=== PATIENT | male | born 1940 | race Caucasian/White ===

== ENCOUNTER 2021-03-29 12:13 | Inpatient (IN) | payer MEDICARE ==
[2021-03-29] MEDS ORDERED: HEPARIN SODIUM 1,000 UN/ML (10ML VL) IV PRN (15:42)
[2021-03-29 16:26] LABS: Glucose,Whole Blood 105 mg/dL (75-99)
[2021-03-29] MEDS: HEPARIN SOD,PORK IN 0.45% NACL 25,000 UNIT in 0.45% NACL 1 250ML.BAG IV SCH (16:55)
[2021-03-29] MEDS: SODIUM CHLORIDE 0.9% 1,000 ML IV SCH (16:56)
[2021-03-29 18:01] LABS: Basophils % (A) 1 %; Eosinophils # (A) 0.1 k/uL (0-0.7); Eosinophils % (A) 2 %; HGB 12.2 gm/dL (13.0-17.5); Lymphocytes % (A) 23 %; MCH 31.2 pg (25.0-35.0); MCHC 33.9 g/dL (31.0-37.0); MCV 91.8 fL (80.0-100.0); Mean Platelet Volume 9.2; Monocytes # (A) 0.4 k/uL (0-1.0); Monocytes % (A) 8 %; Neutrophils # (A) 2.8 k/uL (1.3-7.7); Neutrophils % (A) 64 %; Platelet Count 200 k/uL (150-450); RBC 3.91 m/uL (4.30-5.90); RDW 15.3 % (11.5-15.5); WBC 4.4 k/uL (3.8-10.6)
[2021-03-29 18:20] LABS: Partial Thromboplastin Time 27.4 sec (22.0-30.0); Prothrombin Time 10.7 sec (9.0-12.0)
[2021-03-29] MEDS: TAMSULOSIN 0.4 MG CAP.ER.24H PO SCH (18:29)
--- NOTE | 2021-03-29 18:48 | P.GSCN ---
History of Present Illness Consult date: 03/29/21 Reason for Consult: Coronary artery disease, aortic stenosis Requesting physician: Christopher Weiner History of present illness: This is an 80-year-old gentleman who follows on an outpatient basis with Dr. Toure for primary care. He has a previous medical history of coronary artery disease status post previous PCI, hypertension, hyperlipidemia, right internal carotid stenosis status post right CEA in 2014, insulin-dependent diabetes, hypothyroid, prostate cancer in 2017 status post radiation therapy, Covid pneu monia in May 2020, multiple orthopedic surgeries, previous tobacco dependence, and family history of premature coronary artery disease with father diagnosed less than 55 years old. The patient began experiencing chest pain with shortness of breath on Friday, he continued to get worse over the next few days and he had associated nausea and vomiting. He presented to [facility] for evaluation and treatment. Troponins were mildly elevated and he was ruled in for non-STEMI. He had heart catheterization this morning at [facility] demonstrating normal left ventricular function and aortic valve area 0.9 cm indicating severe aortic stenosis. He also had left heart c atheterization today demonstrating triple-vessel coronary artery disease. Due to these findings the patient was transferred to [facility] by Dr. Weiner with consultation placed to Dr. Navarro for surgical recommendations. Review of Systems Review of systems was completed and was negative except as noted - Cardiovascular Reports as per HPI, Reports chest pain, Reports leg edema, Reports shortness of breath Past Medical History Past Medical History: Atrial Fibrillation, Coronary Artery Disease (CAD), Cancer, Chest Pain / Angina, Diabetes Mellitus, Eye Disorder, Hyperlipidemia, Hypertension, Osteoarthritis (OA), Pneumonia, Prostate Disorder, Thyroid Disorder Additional Past Medical History / Comment(s): Covid pneumonia in May 2020. Patient has received Moderna vaccine in September 2020 History of Any Multi-Drug Resistant Organisms: None Reported Past Surgical History: Heart Catheterization, Heart Catheterization With Stent, Prostate Surgery, Tonsillectomy Additional Past Surgical History / Comment(s): bilateral shoulder, TKA, "carotid artery surgery with shunt" , implant in right ear Past Anesthesia/Blood Transfusion Reactions: No Reported Reaction Date of Last Stent Placement:: 2003 Past Psychological History: No Psychological Hx Reported Smoking Status: Former smoker Past Alcohol Use History: None Reported Past Drug Use History: None Reported - Past Family History Father Family Medical History: Coronary Artery Disease (CAD) Mother Family Medical History: Diabetes Mellitus Medications and Allergies Home Medications Medication Instructions Recorded Confirmed Type Dulaglutide [Trulicity] 3 mg SQ MO 03/29/21 03/29/21 History Insulin Glargine,Hum.rec.anlog 30 unit SQ HS 03/29/21 03/29/21 History [Lantus Solostar Pen] Levothyroxine Sodium [Synthroid] 150 mcg PO DAILY 03/29/21 03/29/21 History Metoprolol Succinate [Toprol XL] 25 mg PO DAILY 03/29/21 03/29/21 History Pioglitazone [Actos] 30 mg PO DAILY 03/29/21 03/29/21 History Simvastatin [Zocor] 40 mg PO HS 03/29/21 03/29/21 History Tamsulosin HCl [Flomax] 0.4 mg PO HS 03/29/21 03/29/21 History hydroCHLOROthiazide 25 mg PO DAILY 03/29/21 03/29/21 History metFORMIN HCL [Glucophage] 1,000 mg PO BID 03/29/21 03/29/21 History Allergies Allergy/AdvReac Type Severity Reaction Status Date / Time No Known Allergies Allergy Verified 03/29/21 17:49 Surgical - Exam Vital Signs Temp Pulse Resp BP Pulse Ox 98 F 65 16 140/71 98 03/29/21 15:24 03/29/21 15:24 03/29/21 15:24 03/29/21 15:24 03/29/21 15:24 CONSTITUTIONAL: Awake and alert, appears comfortable, cooperative, well- developed, well-nourished, no pain, no acute distress EYES: Pupils equal, round, reactive to light, normal ocular movement ENT: Moist mucous membranes without oral lesions present, cochlear implant present, patient has full dentures NECK: No masses, no bruits, trachea midline RESPIRATORY: Lungs sounds clear to auscultation bilaterally. Respirations even, nonlabored. Currently on room air with oxygen saturation 98%. Strong cough. No chest wall deformities. No clubbing or cyanosis present CARDIOVASCULAR: S1, soft S2 present, loud systolic murmur present. Regular rate and rhythm, sinus rhythm on telemetry. Palpable peripheral pulses bilaterally. Bilateral lower extremity edema present, right greater than left. No calf pain or tenderness noted. GASTROINTESTINAL: Abdomen soft, nontender, nondistended without masses or organomegaly noted. There is no rebound or guarding present. Active bowel sounds present 4 quadrants. GENITOURINARY: Deferred INTEGUMENTARY: Skin is warm and dry. T band in place to right radial heart catheterization site NEUROLOGIC: Cranial nerves II through XII intact, normal coordination, no obvious motor or sensory deficits, speech is normal MUSKULOSKELETAL: Able to move all extremities, strength equal bilaterally, normal posture PSYCHIATRIC: Alert and oriented to person place and time, appropriate affect, intact judgment and insight Results - Labs 03/29/21 17:44 Abnormal Lab Results - Last 24 Hours (Table) 03/29/21 03/29/21 Range/Units 16:24 17:44 RBC 3.91 L (4.30-5.90) m/uL Hgb 12.2 L (13.0-17.5) gm/dL Hct 36.0 L (39.0-53.0) % POC Glucose (mg/dL) 105 H (75-99) mg/dL - Imaging Additional studies: Heart catheterization and echocardiogram films reviewed with Dr. Navarro Assessment and Plan Assessment: 1. Coronary artery disease status post previous PCI, non-STEMI this admission 2. Severe aortic stenosis with aortic valve area 0.9 cm 3. Hypertension 4. Hyperlipidemia 5. Right internal carotid stenosis status post right CEA in 2014 6. Insulin-dependent diabetes 7. Hypothyroid 8. Prostate cancer in 2016 status post radiation therapy 9. Covid pneumonia in May 2020, status post Materna vaccine earlier this year 10. Previous tobacco dependence 11. Family history of premature coronary artery disease Plan: The patient was seen and examined at the bedside on the cardiac stepdown unit with Dr. Navarro. Chart/diagnostics from the [facility] were reviewed. The patient is currently in no distress, denies any pain or shortness of breath. The patient does need intervention on his coronary arteries, however due to the extensive nature of severe calcification of the aortic valve extend ing into the aorta the patient is very high risk for open heart surgery. Our recommendations are for PCI to the intermediate artery followed by LAD intervention. Once patient has recovered he may be worked up for TAVR. This was discussed in detail by Dr. Navarro with Dr. Weiner and he is in agreement. This was also discussed in detail with the patient and his and they verbalized understanding. Continue to maximize medical therapy with aspirin, statin, beta brandi. Patient states he had a recent carotid Doppler at Dr. Payne's office, we will attempt to obtain results. Patient has full dentures, he will not need dental clearance. Medical management of other comorbidities per primary care service, cardiology. Thank you Dr. Weiner for this consult. We look forward to working with you in the care of your patient Time with Patient: Greater than 30
[2021-03-29 18:58] LABS: ALT 14 U/L (4-49); AST 38 U/L (17-59); African American GFR (CKD) 76 (>60 ml/min/1.73 sqM); Alkaline Phosphatase 56 U/L (38-126); Anion Gap 9 mmol/L; Blood Urea Nitrogen 21 mg/dL (9-20); Calcium 10.4 mg/dL (8.4-10.2); Carbon Dioxide 25 mmol/L (22-30); Chloride 104 mmol/L (98-107); Glucose 119 mg/dL (74-99); Non-African American GFR(CKD) 66 (>60 ml/min/1.73 sqM); Potassium 4.2 mmol/L (3.5-5.1); Sodium 138 mmol/L (137-145); Total Bilirubin 0.3 mg/dL (0.2-1.3); Total Protein 6.3 g/dL (6.3-8.2)
[2021-03-29 19:46] LABS: Glucose,Whole Blood 120 mg/dL (75-99)
[2021-03-29 20:09] LABS: T4, Free (Free Thyroxine) 1.61 ng/dL (0.78-2.19)
[2021-03-29] MEDS: INSULIN DETEMIR (LEVEMIR) 100 UNIT/ML SYR SQ SCH (20:49)
[2021-03-29] MEDS: INSULIN ASPART (NovoLOG) 100 UNIT/ML VIAL SQ SCH (20:50)
[2021-03-29] MEDS ORDERED: METOPROLOL TARTRATE 12.5 MG TAB PO SCH (21:00)
[2021-03-30 05:42] LABS: Glucose,Whole Blood 97 mg/dL (75-99)
[2021-03-30] MEDS: LEVOTHYROXINE 125 MCG TAB PO SCH (06:07)
[2021-03-30 06:33] LABS: Basophils % (A) 0 %; Eosinophils # (A) 0.2 k/uL (0-0.7); Eosinophils % (A) 3 %; HCT 36.2 % (39.0-53.0); HGB 12.1 gm/dL (13.0-17.5); Lymphocytes # (A) 1.1 k/uL (1.0-4.8); Lymphocytes % (A) 20 %; MCH 30.7 pg (25.0-35.0); MCHC 33.6 g/dL (31.0-37.0); MCV 91.4 fL (80.0-100.0); Mean Platelet Volume 8.7; Monocytes # (A) 0.4 k/uL (0-1.0); Monocytes % (A) 7 %; Neutrophils # (A) 3.7 k/uL (1.3-7.7); Neutrophils % (A) 68 %; Platelet Count 222 k/uL (150-450); RBC 3.96 m/uL (4.30-5.90); RDW 15.2 % (11.5-15.5); WBC 5.4 k/uL (3.8-10.6)
[2021-03-30 06:38] LABS: INR 1.1 (<1.2); Prothrombin Time 11.2 sec (9.0-12.0)
[2021-03-30] MEDS: INSULIN ASPART (NovoLOG) 100 UNIT/ML VIAL SQ SCH ×4 (06:42→21:20)
[2021-03-30 06:54] LABS: Calcium 10.5 mg/dL (8.4-10.2); Potassium 3.6 mmol/L (3.5-5.1)
[2021-03-30] MEDS ORDERED: ATORVASTATIN 40 MG TAB PO SCH (09:00)
--- NOTE | 2021-03-30 09:11 | HP ---
HISTORY AND PHYSICAL This 80-year-old white male was admitted to the hospital. He has had 5 previous stents. He had a heart catheterization at [facility] that showed severe aortic stenosis and triple-vessel coronary artery disease. The patient was sent over to the hospital here for stent placement versus CABG surgery. Discussed with Dr. Navarro, who wants to do a TAVR after he has heart stents placed tomorrow. So I am discussing this with the family and the patient. REVIEW OF SYSTEMS: Fourteen-point review of systems negative except for mentioned in HPI. PAST MEDICAL HISTORY: He has atrial fibrillation, coronary artery disease, angina, diabetes mellitus, dyslipidemia, hypertension, osteoarthritis, pneumonia, prostate disorder, hypothyroidism. He has had heart catheterization with stent, prostate surgery, tonsillectomy, bilateral shoulder, TKA, carotid surgery with stent implant in his right ear. SOCIAL HISTORY: Former smoker. FAMILY HISTORY: Father with coronary artery disease. Mother with diabetes mellitus. HOME MEDICATIONS: 1. Trulicity 3 mg subcutaneously weekly. 2. Lantus 30 units daily. 3. Synthroid 150 mcg daily. 4. Toprol-XL 25 daily. 5. Actos 30 daily. 6. Zocor 40 daily. 7. Flomax 0.4 mg daily. 8. Hydrochlorothiazide 25 mg daily. 9. Metformin 1000 b.i.d. ALLERGIES: NEGATIVE. PHYSICAL EXAMINATION: GENERAL APPEARANCE: He is sitting up, eating food. Temperature 98, respiratory rate 16 to 18, blood pressure 140/71, pulse ox 98. CARDIOVASCULAR: S1, S2. Lungs clear. GI soft. HEMATOLOGY: Negative Homans. PSYCH: Fair mood and affect. Alert and oriented x3. NEUROLOGIC: Cranial nerves are intact. ASSESSMENT: 1. Coronary artery disease, status post previous PCI, non-STEMI. 2. Severe aortic stenosis. 3. Hypertension. 4. Dyslipidemia. 5. Right internal carotid stenosis. 6. Insulin-dependent diabetes mellitus. 7. Hypothyroidism. 8. Prostate cancer. 9. COVID pneumonia in May 2020. 10.Previous nicotine addiction. PLAN: Heart catheterization tomorrow with some stent placement. Possibly TAVR after that versus doubt that they are going to do open heart surgery due to very high risk. Will follow with heart catheterization with stent placement tomorrow. MMODL / IJN: [id number] /
[2021-03-30] MEDS: METOPROLOL TARTRATE 25 MG TAB PO SCH ×2 (09:26→21:18)
[2021-03-30] MEDS: ATORVASTATIN 80 MG TAB PO SCH (09:26)
[2021-03-30] MEDS: PIOGLITAZONE 30 MG TAB PO SCH (09:26)
[2021-03-30] MEDS: LOSARTAN 25 MG TAB PO SCH (09:26)
[2021-03-30] MEDS: ASPIRIN 81 MG PO SCH (09:26)
--- NOTE | 2021-03-30 09:28 | P.PN ---
Subjective Progress Note Date: 03/30/21 Principal diagnosis: Coronary artery disease, non-STEMI this admission, severe aortic stenosis with aortic valve area 0.9 cm. Previous medical history of CAD with previous PCI, h ypertension, hyperlipidemia, right internal carotid stenosis status post right CEA in 2014, insulin-dependent diabetes, hypothyroid, prostate cancer in 2016 status post radiation therapy, covid pneumonia in May 2020, status post Moderna vaccine 09/2020, previous tobacco dependence, and family history of premature coronary artery disease The patient is currently sitting up in a recliner on the cardiac stepdown unit in no acute distress. He denies any chest pain or shortness of breath. Remains in sinus rhythm and hemodynamically stable. The patient was seen by Dr. Navarro last night with recommendations for stenting followed by TAVR workup. This was discussed in detail last night and again this morning with the patient and his , all questions answered. No new concerns. Objective - Vital Signs Vital signs: Vital Signs Temp 97.1 F L 03/30/21 08:00 Pulse 71 03/30/21 08:00 Resp 14 03/30/21 08:00 BP 105/55 03/30/21 08:00 Pulse Ox 99 03/30/21 08:00 Intake & Output 03/29/21 03/30/21 03/30/21 18:59 06:59 18:59 Intake Total 840 318 420 Balance 840 318 420 Weight 101.5 kg 100.7 kg Intake: Intake, IV Titration 78 Amount Heparin Sod,Pork in 0.45% 78 NaCl 25,000 unit In 0.45 % NaCl 1 250ml.bag @ 1, 000 UNIT/HR 10 mls/hr IV .Q24H [facility] Rx#:[id number] Oral 840 240 420 Other: Voiding Method Toilet # Voids 2 - Exam CONSTITUTIONAL: Awake and alert, appears comfortable, cooperative, no pain, no acute distress ENT: Cochlear implant present, patient has full dentures RESPIRATORY: Lungs sounds clear to auscultation bilaterally. Respirations even, nonlabored. Currently on room air with oxygen saturation 99%. CARDIOVASCULAR: S1, soft S2 present, systolic murmur present. Regular rate and rhythm, sinus rhythm on telemetry. Palpable peripheral pulses bilaterally. Bilateral lower extremity edema present, right greater than left. No calf pain or tenderness noted. GASTROINTESTINAL: Abdomen soft, nontender, nondistended. Active bowel sounds present 4 quadrants. Tolerating diet GENITOURINARY: Continues to void INTEGUMENTARY: Skin is warm and dry. NEUROLOGIC: Cranial nerves II through XII intact, normal coordination, no obvious motor or sensory deficits, speech is normal MUSKULOSKELETAL: Able to move all extremities, strength equal bilaterally, normal posture PSYCHIATRIC: Alert and oriented to person place and time, appropriate affect, intact judgment and insight - Allied health notes Allied health notes reviewed: nursing - Labs CBC & Chem 7: 03/30/21 06:03 03/30/21 06:03 Labs: Abnormal Lab Results - Last 24 Hours (Table) 03/29/21 03/29/21 03/29/21 Range/Units 16:24 17:44 17:44 RBC 3.91 L (4.30-5.90) m/uL Hgb 12.2 L (13.0-17.5) gm/dL Hct 36.0 L (39.0-53.0) % APTT (22.0-30.0) sec BUN 21 H (9-20) mg/dL Creatinine (0.66-1.25) mg/dL Glucose 119 H (74-99) mg/dL POC Glucose (mg/dL) 105 H (75-99) mg/dL Calcium 10.4 H (8.4-10.2) mg/dL TSH <0.015 L (0.465-4.680) mIU/L 03/29/21 03/29/21 03/30/21 Range/Units 19:45 23:31 06:03 RBC (4.30-5.90) m/uL Hgb (13.0-17.5) gm/dL Hct (39.0-53.0) % APTT 37.3 H (22.0-30.0) sec BUN (9-20) mg/dL Creatinine 1.26 H (0.66-1.25) mg/dL Glucose (74-99) mg/dL POC Glucose (mg/dL) 120 H (75-99) mg/dL Calcium 10.5 H (8.4-10.2) mg/dL TSH (0.465-4.680) mIU/L 03/30/21 Range/Units 06:03 RBC 3.96 L (4.30-5.90) m/uL Hgb 12.1 L (13.0-17.5) gm/dL Hct 36.2 L (39.0-53.0) % APTT (22.0-30.0) sec BUN (9-20) mg/dL Creatinine (0.66-1.25) mg/dL Glucose (74-99) mg/dL POC Glucose (mg/dL) (75-99) mg/dL Calcium (8.4-10.2) mg/dL TSH (0.465-4.680) mIU/L Assessment and Plan Assessment: 1. Coronary artery disease status post previous PCI, non-STEMI this admission 2. Severe aortic stenosis with aortic valve area 0.9 cm 3. Hypertension 4. Hyperlipidemia, treated 5. Right internal carotid stenosis status post right CEA in 2014 6. Insulin-dependent diabetes 7. Hypothyroid 8. Prostate cancer in 2016 status post radiation therapy 9. Covid pneumonia in May 2020, status post Materna vaccine earlier this year 10. Previous tobacco dependence 11. Family history of premature coronary artery disease Plan: 1. Continue to maximize medical therapy with aspirin, statin, beta brandi 2. Continue with plans for PCI per Dr. Weiner as patient is very high risk for open heart surgery 3. Once patient has recovered from PCI he may be worked up for TAVR 4. Patient had carotid dopplers completed at Dr. Payne's office recently, will place results on patient chart 5. Patient has full dentures, he will not need dental clearance 6. Our contact information was given to the patient. We will follow up with him once PCI has been completed 7. Medical management of other comorbidities per primary care service, cardiology 8. Will continue to see again on an as-needed basis while in hospital. Please call us with any questions or concerns Time with Patient: Greater than 30
--- NOTE | 2021-03-30 09:43 | PN ---
PROGRESS NOTE This gentleman was seen and evaluated by me at [facility] yesterday and I performed a cardiac catheterization. He has a history of moderate aortic stenosis, significant CAD with multivessel PCI. The last stent was performed in [address] Leonel Mcnally at [facility]. He also has a carotid stenosis, previous carotid endarterectomy, hypothyroidism, prostate cancer and in May he had Covid pneumonia from which he recovered. His daughter's wedding was about a week ago and he was since then been having some episodes of chest tightness and pressure, which culminated in significant symptoms of chest pain which brought him to the hospital yesterday. He did have a non-ST elevation [place] and cardiac catheterization revealed a total occlusion of RCA, which I think is a chronic occlusion without antegrade flow and a stump could not be seen. He has a mid LAD stenosis of about 80% and there is a stent beyond the stenotic area. There is also a ramus intermedius stenosis which is significant. Patient's aortic stenosis is moderate to severe with a peak gradient on pullback of about 26 mmHg. The patient has remote history of acute kidney injury as well. His creatinine has gone up to 1.26 today. He was seen and evaluated by Dr. Navarro with whom I discussed on the telephone yesterday. He feels that he is a high risk for open surgery and he also has a stent in the LAD beyond the stenotic segment and therefore bypassing the LAD will be way too distal. He also has extensive calcification of the aorta and aortic arch. Given this, he was advised to have percutaneous intervention. However, I am recommending that I will not do the intervention now with a rising creatinine. Instead, we will pursue medical therapy and discharge him tomorrow after rechecking his creatinine. I will perform the procedure on . We will do it from the right femoral approach with a PCI of the intermediate artery first and then if it goes well of the LAD. The patient will be orally hydrated and also intravenously hydrated on that day. Rationale, risks, benefits and options were carefully explained to the patient and his . They understand all details and wished to proceed with the procedure. Patient will be discharged tomorrow after rechecking the creatinine and we will hydrate him in the interim. Prognosis remains guarded. Patient and are fully aware of the high-risk nature of the intervention. The physical exam revealed normal vital signs. There is evidence of ejection systolic murmur at the base. Second heart sound is preserved. Lungs revealed decent air entry. Abdomen is soft. Lower extremities reveal diminished pulses. Right radial site is clean and dry with a good pulse. Central nervous system grossly no focal deficits. Plan is to continue hydration. Recheck creatinine. Continue beta blockers. Possible discharge tomorrow with intervention of the ramus intermedius and then the LAD on the 16. Prognosis remains guarded. MMODL / IJN: [id number] /
[2021-03-30] MEDS: HEPARIN SOD,PORK IN 0.45% NACL 25,000 UNIT in 0.45% NACL 1 250ML.BAG IV SCH (11:06)
[2021-03-30] MEDS: SODIUM CHLORIDE 0.9% 1,000 ML IV SCH (11:07)
[2021-03-30 11:40] LABS: Glucose,Whole Blood 160 mg/dL (75-99)
[2021-03-30] MEDS: CLOPIDOGREL 75 MG TAB PO SCH (11:55)
[2021-03-30 12:28] LABS: Hemoglobin A1C 6.7 % (4.0-6.0)
[2021-03-30 16:51] LABS: Glucose,Whole Blood 167 mg/dL (75-99)
[2021-03-30] MEDS: TAMSULOSIN 0.4 MG CAP.ER.24H PO SCH (17:45)
[2021-03-30 20:05] LABS: Glucose,Whole Blood 203 mg/dL (75-99)
[2021-03-30] MEDS ORDERED: ARTIFICIAL TEARS-HYPROMELLOSE DROPS 15 ML BTL BOTH EYES PRN (21:16)
[2021-03-30] MEDS: INSULIN DETEMIR (LEVEMIR) 100 UNIT/ML SYR SQ SCH (21:20)
[2021-03-30] MEDS: HEPARIN SODIUM,PORCINE/PF 5,000 UNIT/0.5 ML SYRINGE SQ SCH (21:20)
--- NOTE | 2021-03-30 23:12 | PN ---
PROGRESS NOTE This 80-year-old white male is going to be sent home tomorrow. I started him on Plavix and aspirin. He is going to get a heart catheterization two stents next week and possibly a TAVR down the road. Sitting up in the chair in no acute distress. Cardiovascular: S1, S2. Lungs clear. GI soft. Hematology: Negative Homans. ASSESSMENT: Coronary artery disease. Will need PTCA next week and possible TAVR down the road. Continue with insulin. Control blood pressure. Control cholesterol. MMODL / IJN: [id number] /
[2021-03-31 06:11] LABS: Glucose,Whole Blood 124 mg/dL (75-99)
[2021-03-31] MEDS: LEVOTHYROXINE 125 MCG TAB PO SCH (06:30)
[2021-03-31] MEDS: INSULIN ASPART (NovoLOG) 100 UNIT/ML VIAL SQ SCH ×2 (06:30→12:05)
[2021-03-31] MEDS: SODIUM CHLORIDE 0.9% 1,000 ML IV SCH (06:30)
[2021-03-31 08:06] LABS: Basophils % (A) 1 %; Eosinophils # (A) 0.2 k/uL (0-0.7); Eosinophils % (A) 4 %; HCT 33.8 % (39.0-53.0); HGB 11.6 gm/dL (13.0-17.5); Lymphocytes # (A) 0.7 k/uL (1.0-4.8); Lymphocytes % (A) 13 %; MCH 31.5 pg (25.0-35.0); MCHC 34.2 g/dL (31.0-37.0); MCV 91.9 fL (80.0-100.0); Mean Platelet Volume 8.4; Monocytes # (A) 0.3 k/uL (0-1.0); Monocytes % (A) 7 %; Neutrophils % (A) 75 %; Platelet Count 203 k/uL (150-450); RBC 3.68 m/uL (4.30-5.90); RDW 15.6 % (11.5-15.5); WBC 5.3 k/uL (3.8-10.6)
[2021-03-31] MEDS: LOSARTAN 25 MG TAB PO SCH (08:06)
[2021-03-31] MEDS: ATORVASTATIN 80 MG TAB PO SCH (08:06)
[2021-03-31] MEDS: HEPARIN SODIUM,PORCINE/PF 5,000 UNIT/0.5 ML SYRINGE SQ SCH (08:06)
[2021-03-31] MEDS: METOPROLOL TARTRATE 25 MG TAB PO SCH (08:06)
[2021-03-31] MEDS: PIOGLITAZONE 30 MG TAB PO SCH (08:06)
[2021-03-31] MEDS: CLOPIDOGREL 75 MG TAB PO SCH (08:06)
[2021-03-31] MEDS: ASPIRIN 81 MG PO SCH (08:06)
[2021-03-31 08:45] LABS: Calcium 10.4 mg/dL (8.4-10.2); Potassium 4.1 mmol/L (3.5-5.1)
--- NOTE | 2021-03-31 10:32 | PN ---
PROGRESS NOTE Mr. Gonzalez is a gentleman with significant CAD, non-ST elevation MN and mild to moderate aortic stenosis, admitted to [facility], transferred for surgery but was turned down given his high-risk situation and lack of good targets for grafting. I am recommending multivessel intervention, but after further deliberation I am suggesting we will do it with the Impella heart pump support and this will be performed on the April 05 at 7 a.m. The rationale, risks, benefits, options were discussed in great detail with the patient. He understands all details and wishes to proceed with the procedure which will be scheduled on the April 05, at 7 a.m. Impella right femoral approach. We will also monitor his creatinine. Hemoglobin is 11.6 and platelet count is 203. The patient will be discharged today after evaluation by Dr. Givens. DARRYL / GLENIS: [id number] /
--- NOTE | 2021-03-31 10:36 | PN ---
PROGRESS NOTE Mr. Gonzalez is an 80-year-old male known history of CAD status post multivessel stenting in the past, history of aortic valve disease, hypertension, hyperlipidemia, who was seen by Dr. Weiner, underwent cardiac catheterization because of non STEMI that showed a total occlusion of the RCA, significant disease in the LAD and significant disease in the ramus and he has aortic valve disease. He is feeling well this morning. His breathing has been stable. He denies any chest pain. No dizziness. No palpitation. No nausea. He continues to be at this time on aspirin once a day, Lipitor 80 mg daily, Plavix 75 mg daily, insulin, losartan 25 mg daily, metoprolol tartrate 25 mg twice a day, Actos 30 mg daily. PHYSICAL EXAMINATION: Blood pressure 103/50 with a heart rate 70. Lungs: Clear. Heart regular rate and rhythm S1, S2. No S3 with systolic murmur heard at the base, ejection type. No diastolic murmur. No rub. Abdomen: Soft, nontender. Extremities: No edema. LAB DATA: Lab data revealed BUN and creatinine of 21 and 0.05, potassium 4.1, hemoglobin of 11.6. IMPRESSION: 1. Status post non STEMI with multivessel disease. 2. Aortic valve disease. 3. History of hypertension. 4. Hyperlipidemia. 5. Diabetes mellitus. RECOMMENDATION: Patient's renal function back to baseline. He should be able to be discharged home today and follow up with Dr. Ty Weiner to undergo percutaneous revascularization next and subsequently proceed with TAVR evaluation. In the meantime, he will continue on the present medical therapy. MMODL / IJN: [id number] /
[2021-03-31 11:27] LABS: Glucose,Whole Blood 159 mg/dL (75-99)
[2021-03-31 12:04] VITALS: BP 98/62; PULSE 76; RESP 17; TEMP 98.1
--- NOTE | 2021-04-03 11:00 | ECHOF ---
Referral Reason:LV function MEASUREMENTS -------- HEIGHT: 188.0 cm WEIGHT: 101.2 kg BP: 140/71 RVIDd: 3.1 cm (< 3.3) IVSd: 1.6 cm (0.6 - 1.1) LVIDd: 4.5 cm (3.9 - 5.3) LVPWd: 1.6 cm (0.6 - 1.1) IVSs: 2.1 cm LVIDs: 3.3 cm LVPWs: 2.4 cm LAESV Index (A-L): 45.85 ml/m Ao Diam: 2.5 cm (2.0 - 3.7) AV Cusp: 0.5 cm (1.5 - 2.6) MV EXCURSION: 17.874 mm (> 18.000) MV EF SLOPE: 275 mm/s (70 - 150) EPSS: 1.7 cm MV E Fili: 1.03 m/s MV DecT: 225 ms MV A Fili: 1.32 m/s MV E/A Ratio: 0.78 AV maxP.21 mmHg AV meanP.80 mmHg RAP: 5.00 mmHg RVSP: 29.30 mmHg FINDINGS -------- Sinus rhythm. This was a technically adequate study. The left ventricular size is normal. There is moderate concentric left ventricular hypertrophy. O verall left ventricular systolic function is low-normal with, an EF between 50 - 55 %. The right ventricle is normal in size. LA is severely dilated >40 ml/m2 The right atrial size is normal. Interatrial and interventricular septum intact. Trace to mild aortic regurgitation. There is [id number] aortic stenosis present. Possiblely a heavily calcified bicuspid aortic valve. Peak/mean gradient across the Aortic Valve is 56.21mmH g / 33.80mmHg. Mild mitral annular calcification present. Moderate mitral regurgitation is present. Mild mitral stenosis , with a MVA of 2.6cm (by PHT) Mild tricuspid regurgitation present. There is no evidence of pulmonary hypertension. The right v entricular systolic pressure, as measured by Doppler, is 29.30mmHg. There is no pulmonic regurgitation present. The aortic root is dilated measuring {3.8 cm}. IVC Not well visulized. There is no pericardial effusion. CONCLUSIONS -------- 1. The left ventricular size is normal. 2. There is moderate concentric left ventricular hypertrophy. 3. Overall left ventricular systolic function is low-normal with, an EF between 50 - 55 %. 4. LA is severely dilated >40 ml/m2 5. Trace to mild aortic regurgitation. 6. There is [id number] aortic stenosis present. 7. Peak/mean gradient across the Aortic Valve is 56.21mmHg / 33.80mmHg. 8. Mild mitral annular calcification present. 9. Moderate mitral regurgitation is present. 10. Mild mitral stenosis. 11. , with a MVA of 2.6cm (by PHT) 12. Mild tricuspid regurgitation present. 13. The aortic root is dilated measuring {3.8 cm}. NUCLEAR MEDICINE TECHNOLOGIST: Edwige Meeks RDCS
== END 2021-03-31 13:41 | disposition home or self-care (01) | DRG 282 ==
LOC: 3SCARD 15:21
PROVIDERS: ADMIT Family Medicine; ATTEND Family Medicine
DX: I21.4 Non-ST elevation (NSTEMI) myocardial infarction (principal); E03.9 Hypothyroidism, unspecified; E11.9 Type 2 diabetes mellitus without complications; I25.10 Atherosclerotic heart disease of native coronary artery without angina pectoris; I10 Essential (primary) hypertension; I35.0 Nonrheumatic aortic (valve) stenosis; E78.5 Hyperlipidemia, unspecified; I70.0 Atherosclerosis of aorta; I48.91 Unspecified atrial fibrillation; I65.21 Occlusion and stenosis of right carotid artery; Z86.19 Personal history of other infectious and parasitic diseases; I25.2 Old myocardial infarction; Z79.4 Long term (current) use of insulin; Z79.890 Hormone replacement therapy; Z79.899 Other long term (current) drug therapy; Z87.01 Personal history of pneumonia (recurrent); Z87.891 Personal history of nicotine dependence; Z92.3 Personal history of irradiation; Z95.5 Presence of coronary angioplasty implant and graft; Z85.46 Personal history of malignant neoplasm of prostate
CPT/HCPCS: 80048; 80053; 83036; 83970; 84439; 84443; 85025; 85610; 85730; 93306

== ENCOUNTER 2021-04-05 06:32 | Inpatient (IN) | payer MEDICARE ==
[2021-04-02 16:08] VITALS: BMI 30.2
[~2021-04-05 06:32] MED LIST: ALPRAZolam 0.25 MG TAB PO PRN; ALPRAZolam 0.5 MG TAB PO PRN; NITROGLYCERIN SL TABS 0.4 MG TAB SUBLINGUAL PRN; SODIUM CHLORIDE 0.9% 1,000 ML in EMPTY BAG 1 BAG IV ONE
[2021-04-05] MEDS ORDERED: SODIUM CHLORIDE 0.9% 1,000 ML IV ONE (06:54)
[2021-04-05] MEDS ORDERED: ATORVASTATIN 80 MG TAB PO ONE (07:00)
[2021-04-05] MEDS ORDERED: HEPARIN SODIUM,PORCINE 10,000 UNIT in SODIUM CHLORIDE 0.9% 1,000 ML IRRIGATION PRN (07:00)
[2021-04-05] MEDS ORDERED: HEPARIN SODIUM,PORCINE 2,500 UNIT in SODIUM CHLORIDE 0.9% 250 ML IRRIGATION PRN (07:00)
[2021-04-05] MEDS ORDERED: ASPIRIN 325 MG TAB PO ONE (07:00)
[2021-04-05 07:17] LABS: Glucose,Whole Blood 147 mg/dL (75-99)
[2021-04-05] MEDS ORDERED: fentaNYL (PF) 50 MCG/ML 2 ML AMP ONE (07:17)
[2021-04-05] MEDS ORDERED: HEPARIN SODIUM 1,000 UN/ML (10ML VL) ONE (07:23)
[2021-04-05] MEDS ORDERED: MIDAZOLAM 2 MG/2 ML VIAL IV ONE (07:27)
[2021-04-05] MEDS ORDERED: LIDOCAINE 1% INJ 10MG/ML (10 ML MDV) SQ ONE (07:30)
[2021-04-05] MEDS ORDERED: fentaNYL (PF) 50 MCG/ML 2 ML AMP IV ONE (07:30)
[2021-04-05] MEDS: HEPARIN SODIUM 1,000 UN/ML (10ML VL) IV ONE ×3 (07:46→08:28)
[2021-04-05] MEDS ORDERED: IOPAMIDOL-370 100ML BTL INJ ONE ×2 (08:05→08:53)
[2021-04-05] MEDS ORDERED: HYDROmorphone 0.5 MG/0.5 ML SYRINGE IVP ONE (08:28)
[2021-04-05] MEDS ORDERED: NITROGLYCERIN 1000MCG/10ML SYRINGE INTRACORON ONE (08:47)
[2021-04-05] MEDS ORDERED: CLOPIDOGREL 75 MG TAB ONE (08:58)
[2021-04-05] MEDS ORDERED: SODIUM CHLORIDE 0.9% 1,000 ML IV SCH (09:00)
[2021-04-05] MEDS ORDERED: CLOPIDOGREL 75 MG TAB PO ONE (09:00)
[2021-04-05] MEDS ORDERED: ARTIFICIAL TEARS-HYPROMELLOSE DROPS 15 ML BTL BOTH EYES PRN (09:47)
--- NOTE | 2021-04-05 16:54 | PCN ---
PROCEDURE NOTE DATE OF SERVICE: 04/05/2021. PROCEDURE: 1. Transvenous temporary pacemaker from right femoral venous approach. 2. Orbital atherectomy and stenting of mid left anterior descending coronary artery with a drug-eluting stent. 3. Percutaneous transluminal coronary angioplasty and stenting of proximal portion of ramus intermedius with a drug-eluting stent. PERFORMED BY: Dr. Ty Weiner. Moderate conscious sedation time was 88 minutes. Patient was administered Versed and fentanyl. Oxygen saturation and hemodynamics were monitored closely. CLINICAL INFORMATION: Mr. Mitul Gonzalez is an 80-year-old gentleman with a history of hypertension, hypercholesterolemia and CAD. Over the years in [facility] by Dr. Leonel Caro he underwent stenting of RCA and LAD. RCA has now been totally occluded and LAD has in-stent narrowing and proximal stent narrowing of about 80%. ramus intermedius also had a very tight eccentric lesion and this almost looks like a first obtuse marginal. On March 29 I performed cardiac cath on him at [facility] and noted that he had significant aortic stenosis with a pullback gradient of 26 mmHg. He had a [id number] [place]. His RCA was occluded. LAD and circumflex, first OM/ramus had a significant lesion. I recommended surgery, but he was seen by Dr. Navarro, who felt that he is a high risk for surgery and recommended percutaneous intervention followed by TAVR. I considered doing Impella, but given his significant aortic stenosis, I explained to the patient and his that we will do PCI with orbital atherectomy and if this goes well, consider transesophageal echo in the next few weeks and then send him for evaluation and intervention through the [facility] here at [facility]. After due discussion with the patient and his , he was brought in for the procedure and has been on Plavix for 5 days at 75 mg daily. PROCEDURE NOTE: Under local anesthesia and strict aseptic precautions, a 6-Kinyarwanda introducer was placed in the right femoral artery and a 6-Kinyarwanda introducer in the right femoral vein. A transvenous temporary pacemaker was placed in the right ventricular apex. This was a balloon-tipped pacemaker and threshold was 0.5 mV. The pacer was kept at a backup rate of 40 with an mA of 5.0. I used an XB 3.5, and then switched over to an XB 4.0 catheter. With this, I got decent guide support. I used a run-through long wire and crossed the lesion in the circumflex marginal/ramus intermedius. Predilatation was performed with a 2.5 caliber 15 mm long NC Trek balloon. I then deployed a 2.75 caliber 23 mm long Xience stent. Excellent angiographic result was achieved. Proximal to the stented area, there was a plaque of about 40% which was not disturbed. Within the stented area, there was a focal area of narrowing, and I addressed this with a 12 mm long NC Trek balloon of 3.0 caliber and gave up to 14 atmospheres. There was improvement. Residual stenosis was about 10%. Excellent angiographic result was achieved. The same wire was then advanced into the LAD and kept distally. Using a Teleport catheter, I exchanged this wire for a Nitinol CSI atherectomy wire. The Teleport catheter was then taken out. I advanced an atherectomy CSI device and performed orbital atherectomy with about 4 passes in the mid LAD. The patient tolerated the procedure well. I then used a 3.0 caliber 15 mm long NC Trek balloon to dilate the area where I did the atherectomy. I then deployed a 4.0 caliber 15 mm long Xience stent at 13 atmospheres. Excellent angiographic result was achieved. Patient had chest pain with circumflex marginal/ramus and also had precordial ST elevation with LAD intervention. He received a total of 9000 units of heparin and ACT was 259. The patient was already on Plavix. I gave him additional 300 units of Plavix. Excellent angiographic result of the LAD and circumflex marginal/ramus was achieved. The sheath was taken out and Angio-Seal device used to secure hemostasis for the arterial sheath. For the venous sheath, manual compression was performed. He was sent to the room in a stable condition. Details and results were discussed with the patient, his and daughter. I expect he will be discharged tomorrow. I will request Dr. Skinner to see him and consider a transesophageal echo in the next few weeks. Patient will be on dual antiplatelet therapy, beta brandi and statin medications. He will be discharged tomorrow if he remains stable. MMODL / IJN: [id number] /
[2021-04-05 19:58] LABS: Glucose,Whole Blood 144 mg/dL (75-99)
[2021-04-05] MEDS: METOPROLOL TARTRATE 25 MG TAB PO SCH (20:29)
[2021-04-05] MEDS ORDERED: INSULIN DETEMIR (LEVEMIR) 100 UNIT/ML SYR SQ SCH (21:00)
[2021-04-05] MEDS ORDERED: TAMSULOSIN 0.4 MG CAP.ER.24H PO SCH (21:00)
[2021-04-05 21:55] VITALS: RESP 18
--- NOTE | 2021-04-06 05:49 | CONS ---
CONSULTATION DATE OF SERVICE: April 05, 2021 REASON FOR THE CONSULTATION: Evaluation regarding transcutaneous aortic valve replacement. HISTORY OF PRESENT ILLNESS: This is an 80-year-old gentleman who sees Dr. Weiner with a past medical history significant for coronary artery disease and prior percutaneous revascularization as well as aortic valve disease as well as carotid disease with prior right carotid endarterectomy in 2015 and also hypertension, dyslipidemia, and diabetes. The patient was admitted recently to [facility] with chest discomfort and shortness of breath. At that point, he underwent a heart catheterization which revealed extremely calcified left coronary system with severe disease involving the ramus intermedius and also severe disease involving the left anterior descending artery. The echocardiogram at [facility] revealed evidence of mildly impaired LV function with severe aortic stenosis with an aortic valve area of 0.9 cm2 and mean gradient of about for about 38 mmHg. For the severity of his coronary artery disease and the severity of aortic valve stenosis, the patient was transferred to [facility] where cardiothoracic surgery consult was placed and the patient was seen by Dr. Navarro and he deemed to be high risk for open heart surgery given the extremely calcified/poor seen aorta. For that reason, and because he was asymptomatic at that point, the patient was discharged home and he was brought today and he underwent successful atherectomy and stenting of the LAD along with successful stenting of the ramus intermedius coronary artery by Dr. Weiner from right groin approach with an excellent angiographic results by the end and without any complication. I requested to see the patient for further evaluation regarding transcutaneous aortic valve replacement. I did interview the patient at bedside with the company of his . The patient stated that before the percutaneous coronary intervention, he was experiencing some chest discomfort and shortness of breath. He did not have any symptoms of dizziness or lightheadedness nor presyncope or syncope. No feeling of heart racing or heart fluttering. He is going to be discharged home where he will be seen at the Valve Clinic as an outpatient in few weeks where at that point, we will assess the symptomatic state of the patient and assess the need for percutaneous aortic valve replacement. Currently he is on dual anti-platelet therapy as well as he is on statin. PAST MEDICAL HISTORY: 1. Coronary artery disease as described above. 2. Valvular heart disease as above as well. 3. Diabetes type 2. 4. Hypertension. 5. Dyslipidemia. 6. History of prostate cancer. PAST SURGICAL HISTORY: 1. Carotid artery surgery. 2. Bilateral shoulder surgery. 3. Prostate procedure as well. SOCIAL HISTORY: He used to smoke, but he quit smoking in the past. FAMILY HISTORY: Not relevant. MEDICATIONS: Chronic medications include the followin. Alprazolam 0.25 mg q.6 hours p.r.n. 2. Aspirin 81 mg p.o. daily. 3. Atorvastatin 80 mg p.o. q.h.s. 4. Plavix 75 mg p.o. daily. 5. Trulicity 3 mg subcu every week. 6. Insulin 30 units subcu daily at night. 7. Synthroid 150 mcg p.o. daily. 8. Losartan 25 mg p.o. daily. 9. Metoprolol 25 mg p.o. b.i.d. 10.Nitroglycerin sublingual for chest pain. 11.Flomax 0.4 mg p.o. q.h.s. The blood work from this admission is not was not performed. PHYSICAL EXAMINATION Vital signs are stable Chest examination revealed diminished breathing sounds bilaterally Cardiac examination revealed normal S1 and S2 diminished but still exist. Extremities showed no edema noted. ASSESSMENT: 1. Severe triple-vessel coronary artery disease status post PCI of the ramus intermedius and left anterior descending artery. 2. Severe aortic stenosis. Symptomatic versus asymptomatic. The patient will be seen in a few weeks to assess the symptomatic status 3. Diabetes type 2. 4. Hypertension. 5. Dyslipidemia. 6. Carotid disease. PLAN: 1. The patient is going to be discharged tomorrow. 2. He will be seen and evaluated at the valve the clinic in about 2-4 weeks. 3. Assess the symptomatic status of the patient at that point. 4. Proceed with percutaneous aortic valve replacement if he will be symptomatic. 5. Follow up with the patient. MMODL / IJN: [id number] / SAMUEL
[2021-04-06 05:51] LABS: Glucose,Whole Blood 129 mg/dL (75-99)
[2021-04-06] MEDS ORDERED: LEVOTHYROXINE 75 MCG TAB PO SCH (06:30)
[2021-04-06 08:45] LABS: Anisocytosis Slight; Basophils % (A) 0 %; Eosinophils # (A) 0.2 k/uL (0-0.7); Eosinophils % (A) 4 %; HCT 33.7 % (39.0-53.0); HGB 11.1 gm/dL (13.0-17.5); Lymphocytes # (A) 0.8 k/uL (1.0-4.8); Lymphocytes % (A) 12 %; MCHC 32.8 g/dL (31.0-37.0); MCV 91.4 fL (80.0-100.0); Mean Platelet Volume 8.4; Monocytes # (A) 0.4 k/uL (0-1.0); Monocytes % (A) 7 %; Neutrophils # (A) 4.8 k/uL (1.3-7.7); Neutrophils % (A) 75 %; Platelet Count 213 k/uL (150-450); RBC 3.69 m/uL (4.30-5.90); RDW 16.3 % (11.5-15.5); WBC 6.3 k/uL (3.8-10.6)
[2021-04-06] MEDS ORDERED: ATORVASTATIN 80 MG TAB PO SCH (09:00)
[2021-04-06] MEDS ORDERED: ASPIRIN 81 MG PO SCH (09:00)
[2021-04-06] MEDS ORDERED: CLOPIDOGREL 75 MG TAB PO SCH (09:00)
[2021-04-06] MEDS ORDERED: PIOGLITAZONE 30 MG TAB PO SCH (09:00)
[2021-04-06] MEDS ORDERED: LOSARTAN 25 MG TAB PO SCH (09:00)
[2021-04-06 09:01] LABS: Calcium 9.7 mg/dL (8.4-10.2); Potassium 4.2 mmol/L (3.5-5.1)
[2021-04-06] MEDS: METOPROLOL TARTRATE 25 MG TAB PO SCH (09:48)
[2021-04-06 10:43] VITALS: BP 128/61; PULSE 66; TEMP 98.3
--- NOTE | 2021-04-06 11:13 | DS ---
DISCHARGE SUMMARY DATE OF ADMISSION: 04/05/2021 DATE OF DISCHARGE: 04/06/2021. DIAGNOSES: 1. Unstable angina with a previous multivessel PCI. 2. Moderate to severe aortic stenosis. 3. Diabetes. 4. Hypertension. 5. Hyperlipidemia. Mr. Gonzalez was admitted to the hospital for elective complex multivessel PCI, which was performed yesterday. He had an orbital atherectomy and stenting of mid LAD and stenting of ramus intermedius. RCA is known to be occluded. He had excellent angiographic result. Postprocedure course was uneventful. This morning he is asymptomatic. Vital signs are stable. No chest pain, shortness of breath or palpitations. EKG revealed sinus mechanism with old inferior MN and minor nonspecific ST abnormality. Laboratory data is still pending. No JVD or carotid bruit. S1, S2 with a 2/6 ejection systolic murmur audible at the base. Second heart sound is preserved. Lungs are clear. Abdomen is soft, nontender. Right groin is clean and dry. Lower extremities reveal palpable pulses. No edema. Central nervous system is normal. I am recommending patient can be discharged. He is on dual antiplatelet therapy. I have reviewed all his medications, given discharge instructions. I will see him in the office on 04/12/2021 at 3:30 p.m. We will consider a transesophageal echo as an outpatient and pursue aortic stenosis management as well. We will see how he does clinically. The patient will be discharged today. All discharge instructions were given and appointment time was also discussed. DARRYL / GLENIS: [id number] /
[2021-04-09] MEDS ORDERED: NON FORMULARY DRUG (Dulaglutide [Trulicity] 3 MG/0.5 ML Each) SQ SCH (09:47)
== END 2021-04-06 11:15 | disposition home or self-care (01) | DRG 247 ==
LOC: 2ORMAIN 06:32 → EDSTATUS 07:30 → 3SCARD 09:05
PROVIDERS: ADMIT Internal Medicine Interventional Cardiology; ATTEND Internal Medicine Interventional Cardiology
PROC: 4A023N7 Measurement of Cardiac Sampling and Pressure, Left Heart, Percutaneous Approach (ICD-10-PCS; 2021-04-05)
PROC: 5A1223Z Performance of Cardiac Pacing, Continuous (ICD-10-PCS; 2021-04-05)
PROC: 027135Z Dilation of Coronary Artery, Two Arteries with Two Drug-eluting Intraluminal Devices, Percutaneous Approach (ICD-10-PCS; principal; 2021-04-05 07:15)
PROC: X2C0361 Extirpation of Matter from Coronary Artery, One Artery using Orbital Atherectomy Technology, Percutaneous Approach, New Technology Group 1 (ICD-10-PCS; 2021-04-05 07:15)
DX: I25.110 Atherosclerotic heart disease of native coronary artery with unstable angina pectoris (principal); E78.00 Pure hypercholesterolemia, unspecified; Z87.891 Personal history of nicotine dependence; Z85.46 Personal history of malignant neoplasm of prostate; Z20.822 Contact with and (suspected) exposure to COVID-19; I35.0 Nonrheumatic aortic (valve) stenosis; I25.82 Chronic total occlusion of coronary artery; I10 Essential (primary) hypertension; E78.5 Hyperlipidemia, unspecified; E11.9 Type 2 diabetes mellitus without complications; I25.2 Old myocardial infarction
CPT/HCPCS: 80048; 85025; 87635

== ENCOUNTER 2021-05-07 06:25 | Day surgery (SDC) | payer MEDICARE ==
[2021-05-04 11:19] VITALS: BMI 30.2
[2021-05-07] MEDS ORDERED: SODIUM CHLORIDE 0.9% 500 ML 500 ML IV ONE (06:48)
[2021-05-07 06:59] LABS: Glucose,Whole Blood 128 mg/dL (75-99)
[2021-05-07 07:05] VITALS: RESP 16; TEMP 97.9
[2021-05-07] MEDS ORDERED: fentaNYL (PF) 50 MCG/ML 2 ML AMP ONE (07:35)
[2021-05-07] MEDS ORDERED: BENZOCAINE SPRAY 1 CAN MUCOUS MEM ONE (07:46)
[2021-05-07] MEDS ORDERED: fentaNYL (PF) 50 MCG/ML 2 ML AMP IV ONE (07:47)
[2021-05-07] MEDS ORDERED: MIDAZOLAM 2 MG/2 ML VIAL IV ONE ×2 (07:47→07:50)
--- NOTE | 2021-05-07 08:29 | ECHOT ---
TRANSESOPHAGEAL ECHOCARDIOGRAM DATE OF SERVICE: May 07, 2021. PERFORMING PHYSICIAN: Britton Skinner MD. PROCEDURE PERFORMED: Transesophageal echocardiogram. INDICATION: Aortic stenosis. COMPLICATION: None. LEVEL OF SEDATION: Moderate with sedation length of 15 minutes. PROCEDURE DESCRIPTION: After obtaining an informed consent, explaining the procedure, benefits, risks, complications and alternatives, the patient was brought to the transesophageal echocardiogram suite. A pulse oximetry and heart rate monitors were attached to the patient prior to the procedure. The patient's throat was sprayed using lidocaine locally. Following that, the patient was turned into left lateral position. A bite guard was placed and the patient was then sedated with the above doses of Versed and fentanyl in divided doses. Following that, the transesophageal echocardiogram probe was advanced through the bite guard into the mid esophagus where 2-D echocardiogram images as well as color Doppler images of various cardiac structures were obtained. We evaluated the interatrial septum using 2-D echocardiogram, color Doppler, and contrast study. The procedure was completed. There were no complications. FINDINGS: The left ventricular dimension and systolic function appeared to be within normal limits. The ejection fraction appeared to be in the range of 50% to 55%. The right ventricle appeared to be of normal size and function. The left atrium appeared to be dilated. The left atrial appendage appeared to be free from any thrombus. The aortic valve is probably bicuspid valve with fusion of the non coronary and left coronary cusp. There is evidence of moderate aortic stenosis with a peak gradient of 52 and mean gradient of 31 mmHg. The mitral valve is mildly thickened with mild to moderate MR. There was mild tricuspid regurgitation seen. CONCLUSION: 1. Normal left ventricular dimension and systolic function. 2. Normal right ventricular dimension and systolic function. 3. Probably bicuspid aortic valve with fusion of the left and non coronary cusp. 4. There is evidence of moderate aortic stenosis with a peak gradient of 52 and mean of 31 mmHg. 5. Thickened mitral valve leaflets with mild to moderate MR. 6. Mild tricuspid regurgitation and mild pulmonic insufficiency. 7. Normal left atrial appendage. 8. No evidence of pericardial effusion. MMODL / IJN: [id number] /
[2021-05-07 09:00] VITALS: BP 132/70; PULSE 62
== END 2021-05-07 09:17 | disposition home or self-care (01) ==
LOC: CATHCVL 06:25
PROVIDERS: ATTEND Internal Medicine Interventional Cardiology
DX: I08.3 Combined rheumatic disorders of mitral, aortic and tricuspid valves (principal); Z95.5 Presence of coronary angioplasty implant and graft; I10 Essential (primary) hypertension; Z20.822 Contact with and (suspected) exposure to COVID-19; E11.9 Type 2 diabetes mellitus without complications; E78.5 Hyperlipidemia, unspecified; E78.00 Pure hypercholesterolemia, unspecified; I25.10 Atherosclerotic heart disease of native coronary artery without angina pectoris; Z72.0 Tobacco use; Z85.46 Personal history of malignant neoplasm of prostate; Z82.49 Family history of ischemic heart disease and other diseases of the circulatory system; Z79.890 Hormone replacement therapy; Z79.84 Long term (current) use of oral hypoglycemic drugs; Z79.02 Long term (current) use of antithrombotics/antiplatelets; Z79.82 Long term (current) use of aspirin; Z79.4 Long term (current) use of insulin; Z79.899 Other long term (current) drug therapy
CPT/HCPCS: 93312; 93320; 93325; 87635; J2250; J3010

== ENCOUNTER → 2021-11-19 | Outpatient (CLI) | payer MEDICARE ==
--- NOTE | 2021-11-19 10:50 | XR ---
EXAMINATION TYPE: XR wrist complete RT DATE OF EXAM: 11/19/2021 COMPARISON: NONE HISTORY: Pain TECHNIQUE: Four views submitted. FINDINGS: The osseous structures are intact. The joint spaces are preserved and there is no acute fracture or dislocation. Diffuse osteopenia. IMPRESSION: 1. No definite acute fracture or dislocation if symptoms persist, follow-up study in 7 to 10 days wo uld be suggested
== END | disposition home or self-care (01) ==
LOC: RADXRMAIN 10:04
PROVIDERS: ATTEND Family Medicine
DX: M25.531 Pain in right wrist (principal)

== ENCOUNTER → 2022-04-03 | Outpatient (CLI) | payer MEDICARE ==
[2022-04-03 16:15] LABS: Basophils # (A) 0.02 X 10*3/uL (0.00-0.10); Basophils % (A) 0.3 %; Eosinophils # (A) 0.17 X 10*3/uL (0.04-0.35); Eosinophils % (A) 2.5 %; HCT 35.7 % (39.6-50.0); HGB 11.2 g/dL (13.0-17.0); Immature Grans, Automated 0.1 %; Lymphocytes # (A) 0.67 X 10*3/uL (0.90-5.00); Lymphocytes % (A) 9.7 %; MCH 29.6 pg (27.0-32.0); MCHC 31.4 g/dL (32.0-37.0); MCV 94.2 fL (80.0-97.0); Mean Platelet Volume 11.2 fL (9.5-12.2); Monocytes % (A) 7.2 %; NRBC Per 100 WBC 0 /100 WBCS (0.0-0.0); Neutrophils # (A) 5.53 X 10*3/uL (1.80-7.70); Neutrophils % (A) 80.2 %; Platelet Count 212 X 10*3/uL (140-440); RBC 3.79 X 10*6/uL (4.40-5.60); RDW 15.9 % (11.5-14.5)
[2022-04-03 16:52] LABS: African American GFR (CKD) 68.3 (60.0-200.0); Albumin 4.3 g/dL (3.8-4.9); Albumin/Globulin Ratio 1.98 (1.60-3.17); Anion Gap 10.7 mmol/L (10.00-18.00); BUN/Creat Ratio 17.74 Ratio (12.00-20.00); Blood Urea Nitrogen 20.4 mg/dL (9.0-27.0); Calcium 10.5 mg/dL (8.7-10.3); Carbon Dioxide 25.2 mmol/L (20.0-27.5); Globulin 2.2 g/dL (1.6-3.3); Non-African American GFR(CKD) 58.9 (60.0-200.0); Potassium 4.6 mmol/L (3.5-5.5); Total Bilirubin 0.3 mg/dL (0.30-1.20); Total Protein 6.4 g/dL (6.2-8.2)
== END | disposition home or self-care (01) ==
LOC: LABWHC1 09:24
PROVIDERS: ATTEND Internal Medicine Interventional Cardiology
DX: I25.10 Atherosclerotic heart disease of native coronary artery without angina pectoris (principal); R53.83 Other fatigue
CPT/HCPCS: 36415; 80053; 84439; 84443; 85025

== ENCOUNTER 2023-06-19 07:45 | Day surgery (SDC) | payer MEDICARE ==
[2023-06-16 15:31] VITALS: BMI 27.8
[~2023-06-19 07:45] MED LIST changes: -ALPRAZolam 0.25 MG TAB PO PRN; -ALPRAZolam 0.5 MG TAB PO PRN; +LACTATED RINGERS 1,000 ML IV SCH; -NITROGLYCERIN SL TABS 0.4 MG TAB SUBLINGUAL PRN; -SODIUM CHLORIDE 0.9% 1,000 ML in EMPTY BAG 1 BAG IV ONE
[2023-06-19] MEDS ORDERED: PROPOFOL 10 MG/ML 20 ML VIAL IV ONE (08:23)
[2023-06-19 08:24] LABS: Glucose,Whole Blood 141 mg/dL (70-110)
--- NOTE | 2023-06-19 08:27 | P.GSHP ---
History of Present Illness H&P Date: 06/19/23 Chief Complaint: Chronic constipation This 82-year-old male with history constipation. Patient presents today for colonoscopy. Past Medical History Past Medical History: Atrial Fibrillation, Coronary Artery Disease (CAD), Cancer, Chest Pain / Angina, Diabetes Mellitus, Eye Disorder, Hearing Disorder / Deafness, Hyperlipidemia, Hypertension, Osteoarthritis (OA), Pneumonia, Prostate Disorder, Renal Disease, Thyroid Disorder Additional Past Medical History / Comment(s): Covid pneumonia May 2020 with hospitalization., cochlear implant-hearing, prostate cancer 2016 w/radiation tx, neuropathy feet., constipation, recent charcot foot surgery History of Any Multi-Drug Resistant Organisms: None Reported Past Surgical History: Heart Catheterization, Heart Catheterization With Stent, Orthopedic Surgery, Tonsillectomy Additional Past Surgical History / Comment(s): bilateral shoulder, TKA, right carotid artery surgery, [place] cochlear implant in right ear. heart stents 2002-3,2003-, - total of 7 cardiac stents., cataracts., left hand surgery, left knee surgery Past Anesthesia/Blood Transfusion Reactions: No Reported Reaction Date of Last Stent Placement:: 04/05/21 Past Psychological History: No Psychological Hx Reported Smoking Status: Former smoker Past Alcohol Use History: Rare Additional Past Alcohol Use History / Comment(s): quit smoking 1997 , quit cigarettes prior and smoked a pipe Past Drug Use History: None Reported - Past Family History Father Family Medical History: Coronary Artery Disease (CAD) Mother Family Medical History: Diabetes Mellitus Sister(s) Family Medical History: Cancer Medications and Allergies Home Medications Medication Instructions Recorded Confirmed Type Insulin Glargine,Hum.rec.anlog 24 unit SQ HS 03/29/21 06/19/23 History [Lantus Solostar Pen] Levothyroxine Sodium [Synthroid] 150 mcg PO DAILY 03/29/21 06/19/23 History Pioglitazone [Actos] 30 mg PO DAILY 03/29/21 06/19/23 History Tamsulosin HCl [Flomax] 0.4 mg PO HS 03/29/21 06/19/23 History Aspirin 81 mg PO DAILY 90 Days #90 03/31/21 06/19/23 Rx Furosemide [Lasix] 40 mg PO DAILY 05/04/21 06/19/23 History Cholecalciferol (Vitamin D3) 125 mcg PO DAILY 06/16/23 06/19/23 History [Vitamin D3 (125 MCG = 5,000 IU)] Dulaglutide [Trulicity] 4 mg SQ MO 06/16/23 06/19/23 History Metoprolol Succinate (ER) [Toprol 25 mg PO DAILY 06/16/23 06/19/23 History Xl] Mv-Min/Folic/K1/Lycopen/Lutein 1 each PO HS 06/16/23 06/19/23 History [Centrum Silver Men Tablet] Simvastatin 40 mg PO DAILY 06/16/23 06/19/23 History Allergies Allergy/AdvReac Type Severity Reaction Status Date / Time No Known Allergies Allergy Verified 06/19/23 08:05 Surgical - Exam Vital Signs Temp Pulse Resp BP Pulse Ox 81 F L 81 18 132/74 99 06/19/23 08:02 06/19/23 08:02 06/19/23 08:02 06/19/23 08:02 06/19/23 08:02 - General well developed, well nourished, no distress - Eyes PERRL - ENT normal pinna - Neck no masses - Respiratory normal expansion - Cardiovascular Rhythm: regular - Abdomen Abdomen: soft, non tender Results - Labs Abnormal Lab Results - Last 24 Hours (Table) 06/19/23 Range/Units 08:19 POC Glucose (mg/dL) 141 H (70-110) mg/dL Assessment and Plan Assessment: History of constipation We'll perform colonoscopy.
[2023-06-19 08:28] VITALS: TEMP 81
--- NOTE | 2023-06-19 08:44 | P.OP ---
Date of Procedure: 06/19/23 Preoperative Diagnosis: Constipation Postoperative Diagnosis: Constipation Procedure(s) Performed: Diverticulosis Anesthesia: MAC Surgeon: Danial Ratliff Pathology: none sent Condition: stable Disposition: PACU Description of Procedure: Patient's placed on the endoscopy table in the lateral position. He received IV sedation. The digital rectal exam was performed. This revealed no abnormalities. Flexible colonoscope was then placed patient anus and passed throughout the entire colon. The ileocecal valve was visualized. The cecum, ascending and transverse colon normal. In the descending; there is diverticular changes noted. Scope was back the rectum and this appeared normal. Scope withdrawn for patient.
[2023-06-19 09:16] LABS: Glucose,Whole Blood 141 mg/dL (70-110)
[2023-06-19 09:38] VITALS: BP 108/65; PULSE 77; RESP 17
== END 2023-06-19 09:27 | disposition home or self-care (01) ==
LOC: ORWHC2ENDO 07:45
PROVIDERS: ATTEND Surgery
DX: K59.09 Other constipation (principal); K57.30 Diverticulosis of large intestine without perforation or abscess without bleeding; I25.10 Atherosclerotic heart disease of native coronary artery without angina pectoris; I48.91 Unspecified atrial fibrillation; I10 Essential (primary) hypertension; M19.90 Unspecified osteoarthritis, unspecified site; E78.5 Hyperlipidemia, unspecified; H91.90 Unspecified hearing loss, unspecified ear; E11.9 Type 2 diabetes mellitus without complications; E07.9 Disorder of thyroid, unspecified; G62.9 Polyneuropathy, unspecified; N28.9 Disorder of kidney and ureter, unspecified; Z85.46 Personal history of malignant neoplasm of prostate; Z95.5 Presence of coronary angioplasty implant and graft; Z86.16 Personal history of COVID-19; Z96.651 Presence of right artificial knee joint; Z98.890 Other specified postprocedural states; Z87.891 Personal history of nicotine dependence; Z82.49 Family history of ischemic heart disease and other diseases of the circulatory system; Z83.3 Family history of diabetes mellitus; Z79.890 Hormone replacement therapy; Z79.84 Long term (current) use of oral hypoglycemic drugs; Z79.82 Long term (current) use of aspirin; Z79.899 Other long term (current) drug therapy; Z85.9 Personal history of malignant neoplasm, unspecified; Z79.85 Long-term (current) use of injectable non-insulin antidiabetic drugs
CPT/HCPCS: J2704; G0121; 45378

== ENCOUNTER → 2023-07-28 | Outpatient (CLI) | payer MEDICARE ==
--- NOTE | 2023-07-28 07:55 | USB ---
Reason for Exam: Clinical finding. Technique: Method: Targeted. Prior Study Comparison: 09/19/2000 Bilateral Diagnostic Mammogram, [facility]. Findings: The area of palpable concern of the left breast, the axilla of the left breast and the retroareolar of the left breast were scanned. No solid or cystic masses are identified. There is some mild gynecomastia on the left. Short-term follow-up is recommended in 6 months. Earlier diagnostic imaging can be performed for changing clinical findings. Overall Assessment: Probably benign, BI-RAD 3 Management: Diagnostic Mammogram of the left breast in 6 months. Diagnostic Breast Ultrasound of the left breast in 6 months. A clinical breast exam by your physician is recommended on an annual basis and results should be correlated with mammographic findings. This exam should not preclude additional follow-up of suspicious palpable abnormalities. Results were given to the patient verbally at the time of exam. Electronically signed and approved by: Hank Simpson D.O. Radiologis
--- NOTE | 2023-07-28 08:13 | MM ---
Reason for Exam: Clinical finding. Last mammogram was performed 22 year(s) and 10 month(s) ago. Tissue Density: The breast tissue is almost entirely fat. Findings: Analyzed By CAD. Some minimal increased parenchymal tissues in the subareolar left breast. Suspicious spiculated or lobulated mass is not identified. No distortion is evident. No suspicious groups of microcalcifications, spiculated or lobular masses, architectural distortion or other secondary signs of malignancy are mammographically apparent. Overall Assessment: Incomplete: need additional imaging evaluation, BI-RAD 0 Management: Diagnostic Breast Ultrasound of the left breast. A negative mammogram report should not preclude additional follow up of suspicious palpable abnormalities. Patient should continue monthly self breast exam. A clinical breast exam by your physician is recommended on an annual basis and results should be correlated with mammographic findings. Electronically signed and approved by: Hank Simpson D.O. Radiologis
== END | disposition home or self-care (01) ==
LOC: RADMAMWWP 06:51
PROVIDERS: ATTEND Family Medicine
DX: N63.10 Unspecified lump in the right breast, unspecified quadrant (principal); N63.20 Unspecified lump in the left breast, unspecified quadrant; R92.313 Mammographic fatty tissue density, bilateral breasts
CPT/HCPCS: 77066; 76642; G0279; 77062

== ENCOUNTER → 2023-12-18 | Outpatient (CLI) | payer MEDICARE ==
--- NOTE | 2023-12-18 11:46 | XR ---
EXAMINATION TYPE: XR KUB DATE OF EXAM: 12/18/2023 COMPARISON: NONE HISTORY: Left flank pain TECHNIQUE: One view abdominal series FINDINGS: The osseous structures are intact. The bowel gas pattern is nonspecific. Degenerative change of the spine and bilateral hip arthropathy. Sclerotic density overlying the right iliac bone likely related to bone island. Vascular calcifications. Diffuse osteopenia. Calcification s in the pelvis are too small to characterize but likely vascular. Right kidney: Obscured by bowel content with no definite suspicious calcification. Left kidney: There is a large 1.4 cm central calcification. Approximately 3 additional left renal mart cifications are noted the largest measuring 5 mm. IMPRESSION: 1. Left-sided nephrolithiasis largest measuring 1.4 cm..
== END | disposition home or self-care (01) ==
LOC: RADXRMAIN 11:17
PROVIDERS: ATTEND Urology
DX: N20.0 Calculus of kidney (principal)
CPT/HCPCS: 74018

== ENCOUNTER → 2023-12-23 | Outpatient (CLI) | payer MEDICARE ==
[2023-12-23 18:13] LABS: Appearance,Urine Clear (Clear); Bilirubin,Urine Negative (Negative); Blood,Urine Moderate (Negative); Color,Urine Yellow (Yellow); Ketones,Urine Negative (Negative); Nitrite,Urine Negative (Negative); Specific Gravity,Urine 1.019 (1.001-1.030)
[2023-12-23 18:33] LABS: Bacteria,Urine None Seen (None Seen)
[2023-12-23 19:18] LABS: Basophils # (A) 0.03 X 10*3/uL (0.00-0.10); Basophils % (A) 0.7 %; Eosinophils % (A) 4.4 %; HCT 36.9 % (39.6-50.0); HGB 11.7 g/dL (13.0-17.0); Lymphocytes # (A) 0.91 X 10*3/uL (0.90-5.00); Lymphocytes % (A) 19.9 %; MCH 29.9 pg (27.0-32.0); MCHC 31.7 g/dL (32.0-37.0); MCV 94.4 FL (80.0-97.0); Mean Platelet Volume 11.7 FL (9.5-12.2); Monocytes # (A) 0.44 X 10*3/uL (0.20-1.00); Monocytes % (A) 9.6 %; NRBC Per 100 WBC 0 X 10*3/uL (0.00-0.01); Neutrophils # (A) 2.98 X 10*3/uL (1.80-7.70); Neutrophils % (A) 65.2 %; Platelet Count 200 X 10*3/uL (140-440); RBC 3.91 X 10*6/uL (4.40-5.60); RDW 14.6 % (11.5-14.5); WBC 4.57 X 10*3/uL (4.50-10.00)
[2023-12-23 20:59] LABS: BUN/Creat Ratio 16.25 Ratio (12.00-20.00); Blood Urea Nitrogen 19.5 mg/dL (9.0-27.0); Carbon Dioxide 26.7 mmol/L (21.6-31.8); Chloride 106 mmol/L (96-109); Glucose 209 mg/dL (70-110); Potassium 4.1 mmol/L (3.5-5.5); Sodium 146 mmol/L (135-145)
== END | disposition home or self-care (01) ==
LOC: LABPAT 12:51
PROVIDERS: ATTEND Urology
DX: Z01.812 Encounter for preprocedural laboratory examination (principal); N20.0 Calculus of kidney
CPT/HCPCS: 36415; 80048; 81001; 85025; 87086

== ENCOUNTER 2024-01-07 06:47 | Day surgery (SDC) | payer MEDICARE ==
--- NOTE | 2024-01-06 18:30 | P.GSHP ---
History of Present Illness H&P Date: 01/06/24 83 yo male with a symptomatic left renal stone, 1cm. He has a history of stones. He has had ebrt for prostate cancer. He was given treatment options to rid him of the stone. He comes for left ureteroscopy with laser lithotripsy and possible stent. - Constitutional Constitutional: Denies chills, Denies fever - EENT Eyes: denies blurred vision, denies pain Ears, nose, mouth and throat: Denies headache, Denies sore throat - Cardiovascular Cardiovascular: Denies chest pain, Denies shortness of breath - Respiratory Respiratory: Denies cough, Denies 7 - Gastrointestinal Gastrointestinal: Denies abdominal pain, Denies diarrhea, Denies nausea, Denies vomiting - Genitourinary (Female) Genitourinary: Denies dysuria, Denies hematuria - Genitourinary (Male) Genitourinary: Denies dysuria, Denies hematuria - Musculoskeletal Musculoskeletal: Denies myalgias - Integumentary Integumentary: Denies pruritus, Denies rash - Neurological Neurological: Denies numbness, Denies weakness - Psychiatric Psychiatric: Denies anxiety, Denies depression - Endocrine Endocrine: Denies fatigue, Denies weight change Past Medical History Past Medical History: Atrial Fibrillation, Coronary Artery Disease (CAD), Cancer, Chest Pain / Angina, Diabetes Mellitus, Hearing Disorder / Deafness, Hyperlipidemia, Hypertension, Osteoarthritis (OA), Pneumonia, Prostate Disorder, Renal Disease, Thyroid Disorder Additional Past Medical History / Comment(s): Covid pneumonia May 2020 with hospitalization., cochlear implant-hearing, prostate cancer 2016 w/radiation tx, neuropathy feet., constipation, recent charcot foot surgery kidney stones, aortic aneruysm, History of Any Multi-Drug Resistant Organisms: None Reported Past Surgical History: Heart Catheterization, Heart Catheterization With Stent, Orthopedic Surgery, Prostate Surgery, Tonsillectomy Additional Past Surgical History / Comment(s): bilateral shoulder, right carotid artery surgery, [place] cochlear implant in right ear rt foot surgery, turp circumcison at age 62. heart stents 2002-3,2003-,-2020 - total of 7 cardiac stents., cataracts., left hand surgery, left knee surgery Past Anesthesia/Blood Transfusion Reactions: No Reported Reaction Additional Past Anesthesia/Blood Transfusion Reaction / Comment(s): wakes up during procedure Date of Last Stent Placement:: 04/05/21 Smoking Status: Former smoker - Past Family History Father Family Medical History: Coronary Artery Disease (CAD) Mother Family Medical History: Diabetes Mellitus Sister(s) Family Medical History: Cancer Medications and Allergies Home Medications Medication Instructions Recorded Confirmed Type Insulin Glargine,Hum.rec.anlog 24 unit SQ HS 03/29/21 01/06/24 History [Lantus Solostar Pen] Levothyroxine Sodium [Synthroid] 150 mcg PO DAILY 03/29/21 01/06/24 History Pioglitazone [Actos] 30 mg PO DAILY 03/29/21 01/06/24 History Tamsulosin HCl [Flomax] 0.4 mg PO HS 03/29/21 01/06/24 History Aspirin 81 mg PO DAILY 90 Days #90 03/31/21 01/06/24 Rx Furosemide [Lasix] 40 mg PO DAILY 05/04/21 01/06/24 History Dulaglutide [Trulicity] 4 mg SQ MO 06/16/23 01/06/24 History Metoprolol Succinate (ER) [Toprol 25 mg PO DAILY 06/16/23 01/06/24 History Xl] Mv-Min/Folic/K1/Lycopen/Lutein 1 each PO HS 06/16/23 01/06/24 History [Centrum Silver Men Tablet] Simvastatin 40 mg PO DAILY 06/16/23 01/06/24 History Krill Oil (Ukn) 1 tab PO DAILY 01/06/24 01/06/24 History Allergies Allergy/AdvReac Type Severity Reaction Status Date / Time No Known Allergies Allergy Verified 01/06/24 10:19 Surgical - Exam - General well developed, well nourished, no distress - Eyes normal ocular movement, no icteric - ENT no hearing loss, no congestion - Neck no masses, trachea midline - Respiratory normal respiratory effort, clear to auscultation - Abdomen Abdomen: soft, non tender, no guarding, no rigid, no rebound - Integumentary no rash, no abnormal pigmentation - Neurologic no disoriented, no combative - Psychiatric oriented to time, oriented to person, oriented to place, speech is normal, memory intact Results - Imaging Abdominal x-ray: report reviewed, image reviewed Assessment and Plan Assessment: Impression: Left renal stone, symptomatic, 1 cm Plan: left ureteroscopy with laser lithotripsy
[2024-01-07] MEDS ORDERED: MIDAZOLAM 2 MG/2 ML VIAL IV PRN (07:14)
[2024-01-07] MEDS ORDERED: fentaNYL (PF) 50 MCG/ML 2 ML AMP IVP PRN (07:14)
[2024-01-07] MEDS ORDERED: LIDOCAINE 1% (10MG/ML) FOR IV START INTRADERMA PRN (07:14)
[2024-01-07 08:11] VITALS: TEMP 97
[2024-01-07] MEDS: LACTATED RINGERS 1,000 ML IV SCH (08:23)
[2024-01-07] MEDS: ONDANSETRON 4 MG/2 ML VIAL IVP ONE (08:23)
[2024-01-07] MEDS: DEXAMETHASONE SOD PHOSPHATE 4 MG/ML 1 ML VIAL IV ONE (08:24)
[2024-01-07] MEDS: IV FLUID CONTINUATION 1,000 ML IV ONE (08:25)
[2024-01-07 08:27] LABS: Glucose,Whole Blood 196 mg/dL (70-110)
[2024-01-07] MEDS ORDERED: fentaNYL (PF) 50 MCG/ML 2 ML AMP ONE (08:30)
[2024-01-07] MEDS ORDERED: LIDOCAINE 1% INJ 10MG/ML (20 ML MDV) ONE (08:30)
[2024-01-07] MEDS ORDERED: PROPOFOL 10 MG/ML 20 ML VIAL IV ONE (08:30)
[2024-01-07] MEDS ORDERED: DEXAMETHASONE SOD PHOSPHATE 10 MG/ML 1 ML VIAL ONE (08:30)
--- NOTE | 2024-01-07 08:47 | XR ---
EXAMINATION TYPE: XR KUB DATE OF EXAM: 01/07/2024 7:13 AM CLINICAL INDICATION:Male, 83 years old with history of N20.0 LEFT RENAL STONE; COMPARISON: 12/18/2023. TECHNIQUE: One radiographic view of the abdomen was obtained. FINDINGS: The bowel gas pattern is nonspecific without dilated loops of small or large bowel. There i s no evidence for organomegaly or pneumoperitoneum. The osseous structures are intact. Left renal c alculi measuring up to 14 mm. Fecal material and gas are demonstrated throughout the colon and rectum . IMPRESSION: 1. Left renal calculi measuring up to 14 mm. 2. Nonspecific bowel gas pattern without radiographic evidence for acute process.
--- NOTE | 2024-01-07 10:12 | P.OP ---
Date of Procedure: 01/07/24 Preoperative Diagnosis: symptomatic left renal calculi Postoperative Diagnosis: same Procedure(s) Performed: cystoscopy left ureteroscopy with laser lithotripsy and stone basketing, placement of 6 x 26 stent Anesthesia: NASIR Surgeon: Sylvester Davila Estimated Blood Loss (ml): 0 Pathology: other (stone) Condition: stable Disposition: PACU Indications for Procedure: patient is 83. He has a 1 cm and 4 mm left renal stone they're symptomatic he comes for left ureteroscopy and laser lithotripsy Description of Procedure: patient brought operating suite and given a general anesthetic. He's placed lithotomy position with a sterile prep and drape. Cystoscopy Foroblique lens identifies a normal urethra. The prostatic urethra has been previously radiated. The bladder drummond inspected shows hypervascularity. The left ureteral orifice is very tiny. It requires a 5-Tuvaluan open-ended catheter to direct the wire up the ureter. I then dilate the orifice with the 5-Tuvaluan catheter. Then removed the 5-Tuvaluan catheter and over the wire passed [id number] reentry sheath. The inner sheath is removed. I passed the flexible ureteroscope up into the kidney. The 4 mm stone was identified and broken into tiny pieces the largest of which are basketed. I then take the scope and put it in the calyx with the 1 cm stone. With the 200 laser probe I break it into tiny fragments also basket the largest fragments. There is a fair amount of edema in the ureter and therefore a double-J catheter be placed. Through the ureteral sheath an 035 wires passed into the left kidney. I backloaded the wire onto the cystoscope. Over the wires and passed a 6 x 26 double-J catheter that coils in the left renal pelvis and bladder. The bladder is drained the patient is awakened and returned recovery room good condition. He tolerated procedure well and will be discharged home upon recovery. The stent will be removed in one week.
[2024-01-07] MEDS: HYDROmorphone 0.5 MG/0.5 ML SYRINGE IVP PRN (10:29)
[2024-01-07 10:33] LABS: Glucose,Whole Blood 237 mg/dL (70-110)
[2024-01-07] MEDS: ACETAMINOPHEN TAB 500 MG TAB PO STA (10:34)
[2024-01-07] MEDS: INSULIN ASPART (NovoLOG) 100 UNIT/ML VIAL SQ ONE (10:55)
[2024-01-07 10:56] VITALS: RESP 20
--- NOTE | 2024-01-07 11:05 | FL ---
EXAMINATION TYPE: FL guidance operating room Intraoperative/procedural fluoroscopic services were pro vided. Total fluoroscopy time is 45.5 seconds with a total of 10 submitted images to PACS. Please see the operative/procedural note for further details. DAP: [id number] Gycm2
[2024-01-07 11:59] VITALS: BP 172/80; PULSE 66
== END 2024-01-07 12:02 | disposition home or self-care (01) ==
LOC: OR 06:47
PROVIDERS: ATTEND Urology
DX: N20.0 Calculus of kidney (principal); E78.5 Hyperlipidemia, unspecified; I10 Essential (primary) hypertension; I25.10 Atherosclerotic heart disease of native coronary artery without angina pectoris; I48.91 Unspecified atrial fibrillation; M19.90 Unspecified osteoarthritis, unspecified site; E07.9 Disorder of thyroid, unspecified; Z79.84 Long term (current) use of oral hypoglycemic drugs; Z85.46 Personal history of malignant neoplasm of prostate; Z86.16 Personal history of COVID-19; Z87.891 Personal history of nicotine dependence; Z90.79 Acquired absence of other genital organ(s); Z95.5 Presence of coronary angioplasty implant and graft; Z79.890 Hormone replacement therapy; Z79.899 Other long term (current) drug therapy
CPT/HCPCS: 52356; 82365; 74018; C2625; C1769; C1758; J1100; J0690; J2405; J2001; J3010; J2704; J1170